=== PATIENT | female | born 1960 | race Caucasian/White ===

== ENCOUNTER 2018-06-05 15:15 | Emergency (ER) | payer OTHER ==
[~2018-06-05] VITALS: Ht 149.9 cm; Wt 66.2 kg
[~2018-06-05 15:15] MED LIST: CLONAZEPAM0.5 MG; MECLIZINE HCL12.5 MG; NAPROXEN SODIU550 MG; PAMELOR50 M1; PANADOL EXTRA500 MG; TRAMADOL HCL50 MG; URIN D.S. TABLE1 TAB
[2018-06-05] MEDS ORDERED: SIMVASTATIN20 MG (15:50)
[2018-06-05] MEDS ORDERED: ALENDRONATE SOD70 MG (15:50)
[2018-06-05] MEDS ORDERED: LEVO-T25 MCG (15:51)
[2018-06-05] MEDS ORDERED: AMITRIPTYLINE H25 MG (15:51)
[2018-06-05] MEDS ORDERED: LORAZEPAM0.5 MG (15:51)
== END 2018-06-05 19:18 | disposition home or self-care (01) ==
LOC: ER 15:15
DX: S93.491A Sprain of other ligament of right ankle, initial encounter (principal); W10.8XXA Fall (on) (from) other stairs and steps, initial encounter; Y93.89 Activity, other specified; Y92.89 Other specified places as the place of occurrence of the external cause; Y99.8 Other external cause status